=== PATIENT | female | born 1995 | race Caucasian/White ===

== ENCOUNTER 2017-11-10 23:47 | Emergency (ER) | payer BC ==
--- NOTE | 2017-11-10 23:52 | ER Report ---
History and Physical Time Seen By MD: 23:53 HPI/ROS CHIEF COMPLAINT: left 5th toe injury HISTORY OF PRESENT ILLNESS: This is a 22 year old female. Stubbed left fifth toe on box. Pain with walking. Bruising. Allergies: Coded Allergies: No Known Drug Allergies (Unverified , 11/10/17) Home Meds Reported Medications Benzonatate 100 Mg Cap (TESSALON PERLE 100 MG CAP) 100 Mg Capsule, 100 MG PO TID, #15 CAP 11/11/17 Azithromycin (ZITHROMAX) 250 Mg Tablet, 2 TAB PO ONCE, TAB 11/11/17 Azithromycin (ZITHROMAX) 250 Mg Tablet, 1 TAB PO QDAY, TAB 11/11/17 Reviewed Nurses Notes: Yes Constitutional Vital Sign - Last 24 Hours 11/10/17 11/11/17 11/11/17 11/11/17 23:53 00:00 00:02 00:17 Temp 98.6 Pulse 80 78 85 Resp 17 B/P (MAP) 149/97 127/79 (95) Pulse Ox 94 93 O2 Delivery Room Air 11/11/17 11/11/17 00:30 00:40 Pulse ??? B/P (MAP) 116/77 (90) Pulse Ox 94 Physical Exam General: Alert, no acute distress. Skin: Bruising and swelling. No skin breakdown. Musculoskeletal: Pain with movement. Isolated to the phalanxes, non in metatarsals. Cardiovascular: Normal capillary refill Neuro: Normal sensation. Medical Decision Making EKG/Imaging Imaging TOE LEFT FOOT FIFTH DIGIT HISTORY: Stubbed toe, fifth digit. COMPARISON: None. TECHNIQUE: AP, oblique, and lateral views of the left fifth toe. FINDINGS: There is no fracture or dislocation. IMPRESSION: 1. No acute osseous abnormality of the left fifth toe. Report Dictated By: Leonela Awan at 11/11/2017 12:32 AM ED Course/Re-evaluation ED Course imaging negative, discussed with patient, conservative treatment discussed. Decision to Disposition Date: Nov 11, 2017 Decision to Disposition Time: 00:47 Depart Departure Latest Vital Signs Vital Signs Date Time Temp Pulse Resp B/P (MAP) Pulse Ox O2 Delivery O2 Flow Rate FiO2 11/11/17 00:40 ??? 94 11/11/17 00:30 116/77 (90) 11/10/17 23:53 98.6 17 Room Air Impression: Primary Impression: Sprain of toe, fifth, left Condition: Improved Disposition: HOME OR SELF-CARE Patient Instructions: Sprain (ED) Additional Instructions: Ibuprofen 200mg over the counter tablets, take 4 tablets three times a day with food. Apply ice 20 minutes every 1-2 hours while awake. Rest the injured area, keep it elevated while at rest. Begin gentle range of motion exercises. Problem Qualifiers Primary Impression: Sprain of toe, fifth, left Encounter type: initial encounter Qualified Codes: S93.505A - Unspecified sprain of left lesser toe(s), initial encounter MORA POSADA MD Nov 10, 2017 23:52
[2017-11-11] MEDS ORDERED: BENZ100C4 PO
[2017-11-11] MEDS ORDERED: AZIT-1 PO ×2
[2017-11-11 00:30] VITALS: BP 116/77
--- NOTE | 2017-11-11 00:38 | RADIOLOGY IMAGING REPORT ---
FACILITY: [facility] [place] PATIENT NAME: Sheryl Adam : 1995 MR: [id number] V: [id number] EXAM DATE: ORDERING PHYSICIAN: MORA POSADA TECHNOLOGIST: Location: [facility] [place] Patient: Sheryl Adam : 1995 Visit/Account:[id number] Date of Sevice: 11/10/2017 TOE LEFT FOOT FIFTH DIGIT HISTORY: Stubbed toe, fifth digit. COMPARISON: None. TECHNIQUE: AP, oblique, and lateral views of the left fifth toe. FINDINGS: There is no fracture or dislocation. IMPRESSION: 1. No acute osseous abnormality of the left fifth toe. Report Dictated By: Leonela Awan at 11/11/2017 12:32 AM Report E-Signed By: Leonela Awan at 11/11/2017 12:34 AM WSN:[id number]
== END 2017-11-11 00:56 | disposition home or self-care (01) ==
LOC: ER 11-11 00:07
DX: S93.505A Unspecified sprain of left lesser toe(s), initial encounter (principal)
CPT/HCPCS: 99283

== ENCOUNTER → 2018-05-12 | Outpatient (REF) | payer BC ==
[~2018-05-12] MED LIST: AZIT-1 PO; BENZ100C4 PO
== END ==
LOC: ZZSTITCHES 14:32
PROVIDERS: ATTEND Physician Assistant
DX: Z32.00 Encounter for pregnancy test, result unknown (principal); N91.2 Amenorrhea, unspecified
CPT/HCPCS: 84703

== ENCOUNTER 2018-05-18 12:15 | Emergency (ER) | payer BC ==
[2018-05-18] MEDS ORDERED: OSE75 PO (12:25)
--- NOTE | 2018-05-18 12:31 | ER Report ---
History and Physical Time Seen By MD: 12:31 Hx. of Stated Complaint: ESTIMATES 5 WEEKS . NOTED BLOOD WHILE URINATING THIS AM. C/O 4/10 CRAMPING. HPI/ROS CHIEF COMPLAINT: Abdominal cramping and vaginal bleeding during early HISTORY OF PRESENT ILLNESS: This is a 22-year-old female. She started having c ramping several days ago in the lower abdomen which has been worsening. Today started having bleeding, similar to spotting with a period. She believes she is about 4 weeks along in her . She does have an appointment with the [facility] and [facility] later this week for termination. Denies any fevers or chills. Denies any dysuria. She has chronic constipation which is unchanged. No shortness of breath or chest pain. No other bleeding such as nosebleeds, blood in the stool, or bruising Allergies: Coded Allergies: No Known Drug Allergies (Unverified , 11/10/17) Home Meds Reported Medications Oseltamivir Phosphate (TAMIFLU) 75 Mg Cap, 75 MG PO BID, CAP 05/18/18 Discontinued Reported Medications Benzonatate 100 Mg Cap (TESSALON PERLE 100 MG CAP) 100 Mg Capsule, 100 MG PO TID, #15 CAP 11/11/17 Azithromycin (ZITHROMAX) 250 Mg Tablet, 2 TAB PO ONCE, TAB 11/11/17 Azithromycin (ZITHROMAX) 250 Mg Tablet, 1 TAB PO QDAY, TAB 11/11/17 Reviewed Nurses Notes: Yes Hx Substance Use Disorder: No Constitutional Vital Sign - Last 24 Hours 05/18/18 05/18/18 05/18/18 05/18/18 12:22 12:30 13:00 13:30 Temp 98.7 Pulse 96 94 94 92 Resp 18 B/P (MAP) 131/71 120/80 (93) 118/75 (89) 115/75 (88) Pulse Ox 94 92 89 90 O2 Delivery Room Air 05/18/18 05/18/18 05/18/18 14:00 14:30 15:00 Pulse 86 86 94 B/P (MAP) 119/65 (83) 110/56 (74) 106/73 (84) Pulse Ox 89 94 91 Physical Exam General Appearance: Alert, no acute distress. Eyes: Pupils equal and round no injection. ENT: Normal oral mucosa. Moist mucous membranes. Respiratory: Breathing easily, clear. Cardiac: regular rate and rhythm, normal peripheral perfusion. Gastrointestinal: Abdomen is soft, lower abdominal/pelvic area tenderness throughout, somewhat worse on left side. Pelvic exam: The vulva was normal no lesions. The vagina had darker old blood, no active bleeding noted. The cervix was closed, no current bleeding. The uterus seemed normal size. Tender throughout on bimanual exam. The adnexa had no masses. The exam was performed with a client solutions specialist. Skin: No rashes or lesions. DIFFERENTIAL DIAGNOSIS: After history and physical exam differential diagnosis was considered for early with cramping pain for a few days and new bleeding today, will check ultrasound and labs with differential including but not limited to miscarriage or ectopic . Medical Decision Making Data Points Result Diagram: 05/18/18 1250 05/18/18 1250 Laboratory Hematology Test 05/18/18 12:50 Red Blood Count 4.57 M/uL (4.17-5.56) Mean Corpuscular Volume 94.4 fL (80.0-96.0) Mean Corpuscular Hemoglobin 32.2 pg (26.0-33.0) Mean Corpuscular Hemoglobin Concent 34.1 g/dL (32.0-36.0) Red Cell Distribution Width 12.5 % (11.5-14.5) Mean Platelet Volume 7.1 fL (7.2-11.1) Neutrophils (%) (Auto) 57.9 % (39.4-72.5) Lymphocytes (%) (Auto) 22.8 % (17.6-49.6) Monocytes (%) (Auto) 16.6 % (4.1-12.4) Eosinophils (%) (Auto) 0.5 % (0.4-6.7) Basophils (%) (Auto) 2.2 % (0.3-1.4) Nucleated RBC Relative Count (auto) 0.1 /100WBC Neutrophils # (Auto) 1.4 K/uL (2.0-7.4) Lymphocytes # (Auto) 0.6 K/uL (1.3-3.6) Monocytes # (Auto) 0.4 K/uL (0.3-1.0) Eosinophils # (Auto) 0.0 K/uL (0.0-0.5) Basophils # (Auto) 0.1 K/uL (0.0-0.1) Nucleated RBC Absolute Count (auto) 0.00 K/uL Peripheral Blood Smear No Y/N Prothrombin Time 14.0 seconds (12.0-14.4) Prothromb Time International Ratio 1.07 Activated Partial Thromboplast Time 35 seconds (23-35) Sodium Level 134 mmol/L (137-145) Potassium Level 3.7 mmol/L (3.5-5.0) Chloride Level 103 mmol/L (98-107) Carbon Dioxide Level 21 mmol/L (22-31) Blood Urea Nitrogen 6 mg/dl (7-18) Creatinine 0.60 mg/dl (0.52-1.04) Glomerular Filtration Rate Calc > 60.0 Random Glucose 80 mg/dl (75-110) Calcium Level 8.5 mg/dl (8.4-10.2) Total Bilirubin 0.2 mg/dl (0.2-1.3) Aspartate Amino Transf (AST/SGOT) 38 U/L (0-35) Alanine Aminotransferase (ALT/SGPT) 52 U/L (0-56) Alkaline Phosphatase 58 U/L (0-126) Total Protein 7.5 g/dl (6.3-8.2) Albumin 4.4 g/dl (3.5-5.0) Human Chorionic Gonadotropin, Qual Positive (NEGATIVE) Human Chorionic Gonadotropin, Quant 9394 mIU/ml Chemistry Test 05/18/18 12:50 White Blood Count 2.4 k/uL (4.5-11.0) Red Blood Count 4.57 M/uL (4.17-5.56) Hemoglobin 14.7 g/dL (12.0-16.0) Hematocrit 43.1 % (34.0-47.0) Mean Corpuscular Volume 94.4 fL (80.0-96.0) Mean Corpuscular Hemoglobin 32.2 pg (26.0-33.0) Mean Corpuscular Hemoglobin Concent 34.1 g/dL (32.0-36.0) Red Cell Distribution Width 12.5 % (11.5-14.5) Platelet Count 212 K/uL (150-450) Mean Platelet Volume 7.1 fL (7.2-11.1) Neutrophils (%) (Auto) 57.9 % (39.4-72.5) Lymphocytes (%) (Auto) 22.8 % (17.6-49.6) Monocytes (%) (Auto) 16.6 % (4.1-12.4) Eosinophils (%) (Auto) 0.5 % (0.4-6.7) Basophils (%) (Auto) 2.2 % (0.3-1.4) Nucleated RBC Relative Count (auto) 0.1 /100WBC Neutrophils # (Auto) 1.4 K/uL (2.0-7.4) Lymphocytes # (Auto) 0.6 K/uL (1.3-3.6) Monocytes # (Auto) 0.4 K/uL (0.3-1.0) Eosinophils # (Auto) 0.0 K/uL (0.0-0.5) Basophils # (Auto) 0.1 K/uL (0.0-0.1) Nucleated RBC Absolute Count (auto) 0.00 K/uL Peripheral Blood Smear No Y/N Prothrombin Time 14.0 seconds (12.0-14.4) Prothromb Time International Ratio 1.07 Activated Partial Thromboplast Time 35 seconds (23-35) Glomerular Filtration Rate Calc > 60.0 Calcium Level 8.5 mg/dl (8.4-10.2) Total Bilirubin 0.2 mg/dl (0.2-1.3) Aspartate Amino Transf (AST/SGOT) 38 U/L (0-35) Alanine Aminotransferase (ALT/SGPT) 52 U/L (0-56) Alkaline Phosphatase 58 U/L (0-126) Total Protein 7.5 g/dl (6.3-8.2) Albumin 4.4 g/dl (3.5-5.0) Human Chorionic Gonadotropin, Qual Positive (NEGATIVE) Human Chorionic Gonadotropin, Quant 9394 mIU/ml Coagulation Test 05/18/18 12:50 Prothrombin Time 14.0 seconds Prothromb Time International Ratio 1.07 Activated Partial Thromboplast Time 35 seconds EKG/Imaging Imaging Transvaginal OB Ultrasound HISTORY: pelvic pain, bleeding, early COMPARISON: None. TECHNIQUE: Transvaginal FINDINGS: Gestational sac: Single, intrauterine, and unremarkable Yolk sac: Visualized. Embryo: Not visualized Embryonic cardiac activity: Not visualized Estimated gestational age by LMP of April 05, 2018: Six weeks one day Ultrasound age: Five weeks five days by gestational sac diameter Subchorionic hemorrhage: The technologist reports a possible area of subchorionic hemorrhage during real-time scanning Uterus: Gravid, otherwise unremarkable. Maternal ovaries: Right ovary measures 2.9 x 1.4 x 1.8 cm. There is a 2 x 1.4 x 1.6 cm hypoechoic ovoid region within the right ovary with some acoustic enhancement. This may represent hemorrhagic or collapsing cyst Left ovary measures 2 x 2.3 x 2 cm there is a well-circumscribed solid hypoechoic area within the left ovary measuring 1.2 x 1 x 1.5 cm with peripheral vascularity Adnexa: Negative Free pelvic fluid: A mild amount of complex fluid IMPRESSION: There is a well-formed intrauterine gestational sac with a mean sac diameter consistent with five weeks and five days. pole is not definitively seen. Correlation with hCG levels recommended and follow-up ultrasound to assure intrauterine . The technologist reports possible area of subarachnoid hemorrhage during real- time scanning. There are hypoechoic regions seen within both ovaries. The left ovary demonstrates peripheral vascularity. These may represent collapsing or hemorrhagic cyst although short-term interval follow-up again recommended Mild amount of complex fluid in the pelvic cul-de-sac. Results were called to MORA POSADA at 05/18/2018 2:40 PM. Report Dictated By: Marychuy Roth MD at 05/18/2018 2:26 PM ED Course/Re-evaluation Clinical Indication for ER IV: Hydration, IV Access ED Course Initial evaluation as noted above. Ultrasound was obtained and the patient has what appears to be an intrauterine but there is some complex fluid outside the uterus as well. Quantitative HCG was 9394. Reviewed this information with the patient and called and discussed with Dr. White, [employer]. The patient will return on Friday to have repeat HCG level to help determine if she is having a miscarriage or if she should see the doctor in [place] for termination, or less likely if there is a ectopic. Dr. White is solution developer again on Friday when she will be coming in to have the repeat level and can help advise as needed. Decision to Disposition Date: May 18, 2018 Decision to Disposition Time: 15:15 Depart Departure Latest Vital Signs Vital Signs Date Time Temp Pulse Resp B/P (MAP) Pulse Ox O2 Delivery O2 Flow Rate FiO2 05/18/18 15:00 94 106/73 (84) 91 05/18/18 12:22 98.7 18 Room Air Impression: Primary Impression: Threatened Condition: Improved Disposition: HOME OR SELF-CARE Patient Instructions: Threatened Miscarriage (ED) Additional Instructions: Follow-up here for a repeat HCG quantitative lab test on Friday. This can be done as an outpatient at the lab and then have you wait for us to help with interpreting the results and further instructions on what to do, or you can check in to the ER for a repeat visit at that time. MORA POSADA MD May 18, 2018 12:31
[2018-05-18] MEDS ORDERED: MORPHINE 2 MG/ML SYR IVP ONE (12:45)
[2018-05-18] MEDS ORDERED: ONDANSETRON 4 MG/2 ML VIAL IVP ONE (12:45)
[2018-05-18 12:59] LABS: PLATELET COUNT, AUTOMATED 212 K/uL (150-450)
[2018-05-18 13:18] LABS: INR 1.07
--- NOTE | 2018-05-18 14:49 | RADIOLOGY IMAGING REPORT ---
FACILITY: [facility] PATIENT NAME: Sheryl Adam : 1995 MR: [id number] V: [id number] EXAM DATE: ORDERING PHYSICIAN: MORA POSADA TECHNOLOGIST: Location: [facility] Patient: Sheryl Adam : 1995 Visit/Account:[id number] Date of Sevice: 05/18/2018 Transvaginal OB Ultrasound HISTORY: pelvic pain, bleeding, early COMPARISON: None. TECHNIQUE: Transvaginal FINDINGS: Gestational sac: Single, intrauterine, and unremarkable Yolk sac: Visualized. Embryo: Not visualized Embryonic cardiac activity: Not visualized Estimated gestational age by LMP of April 05, 2018: Six weeks one day Ultrasound age: Five weeks five days by gestational sac diameter Subchorionic hemorrhage: The technologist reports a possible area of subchorionic hemorrhage during r eal-time scanning Uterus: Gravid, otherwise unremarkable. Maternal ovaries: Right ovary measures 2.9 x 1.4 x 1.8 cm. There is a 2 x 1.4 x 1.6 cm hypoechoic ov oid region within the right ovary with some acoustic enhancement. This may represent hemorrhagic or collapsing cyst Left ovary measures 2 x 2.3 x 2 cm there is a well-circumscribed solid hypoechoic area within the lef t ovary measuring 1.2 x 1 x 1.5 cm with peripheral vascularity Adnexa: Negative Free pelvic fluid: A mild amount of complex fluid IMPRESSION: There is a well-formed intrauterine gestational sac with a mean sac diameter consistent with five wee ks and five days. pole is not definitively seen. Correlation with hCG levels recommended and follow-up ultrasound to assure intrauterine . The technologist reports possible area of subarachnoid hemorrhage during real-time scanning. There are hypoechoic regions seen within both ovaries. The left ovary demonstrates peripheral vascul arity. These may represent collapsing or hemorrhagic cyst although short-term interval follow-up aga in recommended Mild amount of complex fluid in the pelvic cul-de-sac. Results were called to MORA POSADA at 05/18/2018 2:40 PM. Report Dictated By: Marychuy Roth MD at 05/18/2018 2:26 PM Report E-Signed By: Marychuy Roth MD at 05/18/2018 2:45 PM [id number]
[2018-05-18 15:00] VITALS: BP 106/73
== END 2018-05-18 15:31 | disposition home or self-care (01) ==
LOC: ER 12:29
DX: O20.0 Threatened abortion (principal); Z3A.01 Less than 8 weeks gestation of pregnancy
CPT/HCPCS: 76817; 84702; 84703; 85025; 85610; 85730; 86900; 86901; 96374; 96375; 99284; J2270; J2405; 82040; 82247; 82310; 82374; 82435; 82565; 82947; 84075; 84132; 84155; 84295; 84450; 84460; 84520

== ENCOUNTER → 2018-05-20 | Outpatient (CLI) | payer BC ==
[~2018-05-20] MED LIST changes: +OSE75 PO
== END ==
LOC: LAB 09:53
PROVIDERS: ATTEND Family Medicine
DX: O20.0 Threatened abortion (principal)
CPT/HCPCS: 36415; 84702